=== PATIENT | female | born 1980 | race Caucasian/White ===

== ENCOUNTER 2018-03-24 08:53 | Inpatient (IN) | payer BC ==
[2018-03-24] MEDS ORDERED: Ondansetron HCl/PF 4 MG/2 ML Vial ONE (09:19)
[2018-03-24] MEDS ORDERED: Ketorolac Tromethamine 30 MG/ML VIAL ONE ×2 (09:19→12:37)
[2018-03-24 09:25] LABS: Bilirubin Negative (Negative); Blood, Urine Negative (Negative); Clarity Clear (Clear); Glucose, Urine (Dipstick) Negative (Negative); Leukocyte Negative (Negative); Nitrite Negative (Negative); Protein, Urine (Dipstick) Negative (Neg-Trace); Urobilinogen 0.2 mg/dL (0.2-1.0)
[2018-03-24 09:27] LABS: Pregnancy Test - Urine (BHCG) Negative (Negative); Pregu Control Background? CLEAR/WHITE (CLR/WHITE); Pregu Control Bar Appear? YES (CONTROL BAR)
[2018-03-24 09:32] LABS: #Basophils 0.1 thou/uL (0.0-0.2); #Eosinphils 0.2 thou/uL (0.0-0.7); #Lymphocytes 1.1 thou/uL (1.20-3.40); #Monocytes 1.1 thou/uL (0.11-0.59); #Neutrophils 12.5 thou/uL (1.40-6.50); %Basophils 0.6 % (0.0-1.0); %Lymphocytes 7.6 % (21.0-51.0); %Monocytes 7.2 % (0.0-10.0); %Neutrophils 83.6 % (42.0-75.0); Hemoglobin 14.3 g/dL (12.0-16.0); Mean Corpuscular Hemoglobin 31.5 pg (27.0-31.0); Mean Corpuscular Volume 90.1 fL (78.0-98.0); Mean Platelet Volume 8.5 fL (7.4-10.4); Platelet Count 263 thou/uL (130-400); RBC Distribution Width 11.1 % (11.5-14.5); Red Blood Cell (RBC) Count 4.54 mill/uL (4.20-5.40)
[2018-03-24 09:58] LABS: ALT (SGPT) 20 U/L (8-55); AST (SGOT) 17 U/L (5-34); Alkaline Phosphatase 60 U/L (40-150); Anion Gap 11 mmol/L (10-20); BUN (Urea Nitrogen) 12 mg/dL (7.0-18.7); Bilirubin, Total 0.6 mg/dL (0.2-1.2); Calc. Creatinine Clearance 0 mL/min (70-130); Calcium 8.8 mg/dL (7.8-10.44); Carbon Dioxide 25 mmol/L (22-29); Chloride 105 mmol/L (98-107); Estimated GFR-MDRD 88; Globulin 2.7 g/dL (2.4-3.5); Glucose 102 mg/dL (70-105); Lipase 8 U/L (8-78); Potassium 4.6 mmol/L (3.5-5.1); Protein, Total 6.7 g/dL (6.0-8.3); Sodium 136 mmol/L (136-145)
[2018-03-24] MEDS ORDERED: Morphine 4 MG/ML Carpuject ONE (11:19)
--- NOTE | 2018-03-24 11:42 | CT ---
CT ABDOMEN AND PELVIS WITHOUT CONTRAST: Date: 03/24/18 HISTORY: Right flank pain, right lower abdominal pain with nausea and low grade temperature. History of previo us appendectomy. FINDINGS: Absence of oral and IV contrast reduces the sensitivity of exam, particularly for evaluation of solid organs and bowel. No free air is seen. A small amount of free fluid is noted in the pelvis. No calcified gallstones are seen. No calculi noted in the kidneys, ureters, or the urinary bladder. There are postop changes of cholecystectomy. Multiple pelvic phleboliths are present. There is fecal material in the colon. Uterus is present. There is a 7.0 cm complex mass in the right adnexa. IMPRESSION: 1. No CT evidence of urinary tract calculi or obstruction. 2. 7.0 cm complex right adnexal mass, likely ovarian. Further evaluation with pelvic ultrasound woul d be helpful. POS: ANIL
--- NOTE | 2018-03-24 11:49 | ULT ---
PELVIC ULTRASOUND: Date: 03/24/18 HISTORY: Complex right adnexal mass. COMPARISON: None. CORRELATION: CT abdomen and pelvis dated 03/24/18. TECHNIQUE: Transabdominal and endovaginal imaging of the pelvis is performed. Right ovary is interrogated with G ray scale, color flow, Doppler imaging, and spectral waveform analysis. FINDINGS: Surgically absent uterus. Left ovary is not appreciated. No obvious masses or fluid in the left adnexa. In the right adnexa, there is a complex, mixed echotexture focus, measuring 7.4 x 4.3 x 5.5 cm. Multi ple septations and separate anechoic foci are noted suggesting a complex cystic lesion. The largest c omplex cystic focus measures 4.1 x 3.6 x 4.0 cm. There is no free fluid. OVARIAN DOPPLER: There is vascular flow along the periphery of the aforementioned complex right adnexal lesion. IMPRESSION: Complex right ovarian cyst is suspected. There is peripheral vascular flow. Correlate clinically with gynecological consultation. Follow-up imaging in 8-10 weeks is recommended. POS: ANIL
[2018-03-24] MEDS ORDERED: HYDROcodone/Acetaminophen 7.5/325 mg Tablet PO PRN (13:18)
[2018-03-24] MEDS ORDERED: Ondansetron ODT 4 MG TAB PO PRN (13:18)
[2018-03-24] MEDS ORDERED: Zolpidem Tartrate 5 MG TAB PO PRN (13:18)
[2018-03-24] MEDS ORDERED: Ondansetron HCl/PF 4 MG/2 ML Vial IVP PRN (13:18)
[2018-03-24] MEDS: HYDROcodone/Acetaminophen 7.5/325 mg Tablet PO PRN ×2 (15:33→20:06)
--- NOTE | 2018-03-24 17:54 | HP ---
DATE OF ADMISSION: 03/24/2018 REASON FOR ADMISSION: Right lower quadrant pain with complex right adnexal mass. HISTORY OF PRESENT ILLNESS: Ms. Merida is a 37-year-old 2, para 2, status post x2, who p resents with approximately 1 day of right lower quadrant pain. She had had some mild back pain on th e right for the past week or so and then had sudden onset about 12-15 hours ago. She has had some mi ld nausea and vomiting with it. The patient has never had this in the past. OB AND INSURANCE VERIFY REP HISTORY: x2, peripartum hysterectomy with second child secondary to retained placenta and possibly accreta. The patient received blood transfusions and had a hysterectomy 2-3 days post delivery. She has no history of endometriosis or cervical dysplasia. PAST MEDICAL HISTORY: Denies. PAST SURGICAL HISTORY: Appendectomy and hysterectomy. SOCIAL HISTORY: Denies tobacco, alcohol or drug use. FAMILY HISTORY: Noncontributory. REVIEW OF SYSTEMS: Noncontributory. PHYSICAL EXAMINATION: GENERAL: White female, in no acute distress. VITAL SIGNS: Temperature 98.9, pulse 63, respirations 18, blood pressure 95/53. HEENT: Within normal limits. LUNGS: Clear to auscultation bilaterally. HEART: Regular rate and rhythm. BREASTS: Without masses bilaterally. ABDOMEN: Soft and nontender except in the right lower quadrant with moderate palpation. There is no fluid wave. No CVA tenderness. PELVIC: Deferred. EXTREMITIES: Without clubbing, cyanosis or edema. LABORATORY DATA: The patient has a white count of 15,000, hematocrit of 41%, normal platelet count, normal base met and a clear UA. RADIOLOGIC IMAGING: Pelvic ultrasound reveals complex mixed echogenic texture focus read as measurin g 7.45 x 4.3 x 5.5 cm with multiple septations and separate anechoic foci noted. My review of the pi ctures reveals that they seemed to be most consistent with hemorrhagic cyst. There is no free fluid. There is no evidence of mature cystic teratoma. Good Doppler flow was noted. Left ovary was not a ppreciated on ultrasound or CT. CT scan confirmed the same findings as noted on ultrasound. IMPRESSION: Probable hemorrhagic right ovarian cyst. Other possibilities include mature cystic vanessa frantz or malignancy, although these seem low on the list with the subtle findings as well as absence o f free fluid and the patient's age. PLAN: Discussed with the patient options. The size of the mass and the patient's pain places it as a non-elective case, at this time really cannot call it emergent. We will place the patient on the s urgical schedule for tomorrow. Clear liquid diet this afternoon, n.p.o. after midnight. CA-125 orde red and pending. We will administer appropriate antibiotic and DVT prophylaxis.
[2018-03-24] MEDS: Docusate 100 MG CAP PO SCH (20:07)
[2018-03-24] MEDS: Sodium Chloride 0.9% 1,000 ML IV SCH ×2 (20:09→20:17)
[2018-03-25] MEDS ORDERED: Sodium Chloride 0.9% 10 ML ONE (00:01)
[2018-03-25] MEDS: HYDROcodone/Acetaminophen 7.5/325 mg Tablet PO PRN (00:28)
[2018-03-25] MEDS: Sodium Chloride 0.9% 1,000 ML IV SCH ×4 (06:29→22:26)
--- NOTE | 2018-03-25 07:24 | PRG ---
DATE OF SERVICE: 03/25/2018 TIME OF SERVICE: 0645 The patient is resting comfortably with right adnexal mass. Ultrasound findings are consistent with a hemorrhagic cyst. CA-125 came back and was less than 9. The patient reports continued pain and ju st received morphine for pain control. PHYSICAL EXAMINATION: VITAL SIGNS: Temperature 98.8, pulse 63, respirations 16, blood pressure 100/63. ABDOMEN: Soft, but discomfort in right lower quadrant with no fluid wave and no rebound, no CVA tend erness noted. EXTREMITIES: Without clubbing, cyanosis or edema. IMPRESSION: Right adnexal mass measuring 7-8 cm in greatest diameter. PLAN: Discussed with patient and her the option. Her pain remains the same. The patient is on the add-on schedule for a laparoscopic right salpingo-oophorectomy later today by the next shift O B Hospitalist, Dr. Nick Campbell. We will administer appropriate antibiotic and DVT prophylaxis.
[2018-03-25] MEDS ORDERED: CEFAZOLIN/Water 2 GM/20 ML SYRINGE SLOW IVP SCH (08:00)
[2018-03-25] MEDS ORDERED: CEFAZOLIN/Water 2 GM/20 ML SYRINGE ONE (09:14)
--- NOTE | 2018-03-25 09:24 | PRG ---
DATE OF SERVICE: 03/25/2018 DATE OF ADMISSION: 03/24/2018 TIME OF BEDSIDE EVALUATION: 0830 until 0855. LOCATION: Room 306. 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 She is unsure if the left ovary was excised and removed at that time. The patient comes in for increasing abdominal and back pain and was found to have a 7 cm complex hemorrhagic appearing right adnexal mass on both CT scan and ultrasound. She was initially evaluated and worked up by Dr. Yehuda Lassiter and she was placed on the OR schedule for today with a time at approximately 10:00 a.m., but we are still events traffic controller and pending. The patient is unsure if she has both ovaries or just one. I reviewed with the patient her surgical history which includes her unplanned emergent hysterectomy for bleeding after an attempt a t D&C at that time. She also had a laparoscopic appendectomy in the past with an access port/retriev al bag incision on the left lower quadrant. I discussed with the patient three options of care: 1. Expectant management. 2. Laparoscopic removal. 3. Mini Pfannenstiel incision. While expectant management is an option, I am unsure if this will re solve as it is complex and already 7 cm. The risk of spontaneous intra-abdominal rupture is there an d so I elected to inform her that removal may be best. The patient agreed. Once removal was elected we then approached the discussion of laparoscopic surgery versus laparotomy. As the patient has had a prior hysterectomy and appendectomy, the likelihood for increased intraabdominal pelvic adhesions is higher. I discussed with her that a mini laparotomy may allow more tactile inspection of the adne xa. After discussion, the patient has elected to proceed with a mini laparotomy instead of a laparos copy. Once we decided on a mini laparotomy via Pfannenstiel, I notified the OR and changed the proce dure from laparoscopic ovarian cyst removal to mini Pfannenstiel. 4. The patient was given risks including anesthesia, infection, bowel/visceral injury, recurrence. I discussed with her that if the patient only has one ovary, removal of this ovary would result in a menopausal state. We will only remove the remaining ovary if necessary. It is unclear if the patien t does have both ovaries as the ultrasound did not reveal the contralateral ovary. If the patient do es have both ovaries, we can consider unilateral oophorectomy for the affected side if necessary. If the patient does not have both ovaries, we will try to preserve some ovarian tissue to prevent menop ausal status at the risk of future cyst recurrence. At time of dictation which was 854 the patient was taken down to the main OR per wheelchair to await prep and anesthesia evaluation. ASSESSMENT: This is a patient status post hysterectomy and appendectomy with 7 cm complex right adne xal cyst. CA-125 is normal. PLAN: 1. Mini laparotomy after informed consent. Laparoscopic approach also reviewed with her and patient elects for a mini open laparotomy. 2. No acute concerns at this time.
[2018-03-25] MEDS ORDERED: Morphine 4 MG/ML VIAL ONE (09:45)
[2018-03-25] MEDS ORDERED: Bupivacaine HCl 0.5%/Epinephrine 1:200,000/PF 30 ml Vial ONE ×2 (09:51→11:54)
[2018-03-25] MEDS ORDERED: Scopolamine 1.5 mg/72 hour Patch ONE (09:58)
[2018-03-25] MEDS ORDERED: Midazolam HCl 2 mg/2 ml Vial ONE (09:58)
--- NOTE | 2018-03-25 10:07 | PDOC.EVN ---
Event Note - Event Note Event Note: PREOP HOLDING: @ 1005: I AM WITH THE PATIENT AT BEDSIDE...JACINDA 1. AWAITING TRANSFER TO OR D. I AGAIN DISCUSSED WITH HER OPTIONS FOR APPROACH, AND PATIENT ELECTS MINI LOPEZ.
[2018-03-25] MEDS ORDERED: Fentanyl 250 MCG/5 ML VIAL ONE (10:10)
[2018-03-25] MEDS ORDERED: HYDROmorphone 2 MG/ML VIAL ONE (11:26)
[2018-03-25] MEDS ORDERED: HYDROmorphone 2 MG/ML VIAL SLOW IVP PRN (11:27)
[2018-03-25] MEDS ORDERED: Promethazine HCl 25 MG/ML VIAL IM PRN ×2 (11:27→12:34)
[2018-03-25] MEDS ORDERED: Meperidine HCl/PF 25 MG/ML VIAL SLOW IVP PRN ×2 (11:27→12:34)
[2018-03-25] MEDS ORDERED: Ondansetron HCl/PF 4 MG/2 ML Vial IVP PRN ×2 (11:27→12:34)
[2018-03-25] MEDS ORDERED: Promethazine HCl 25 MG/ML VIAL SLOW IVP PRN ×2 (11:27→12:34)
[2018-03-25] MEDS ORDERED: Bupivacaine PF 0.5% 30 ML VIAL ONE (11:47)
[2018-03-25] MEDS ORDERED: Simethicone Chewable 80 MG TAB PO PRN (12:25)
[2018-03-25] MEDS ORDERED: Acetaminophen/Codeine 30-300mg Tablet PO PRN (12:25)
[2018-03-25] MEDS ORDERED: Lactated Ringer's 1,000 ML IV SCH (12:30)
[2018-03-25] MEDS ORDERED: Morphine Sulfate 2 MG/ML SYRINGE SLOW IVP PRN (12:34)
--- NOTE | 2018-03-25 12:42 | OP ---
DATE OF PROCEDURE: 03/25/2018 TIME: 12:16 PREOPERATIVE DIAGNOSES: This is a patient status post hysterectomy in the past , around 2008, which occurred who has a symptomatic right hemorrhagic appearing 7 cm mass. POSTOPERATIVE DIAGNOSES: 1. This is a patient status post hysterectomy in the past, around 2008, which occurred who has a symptomatic right hemorrhagic appearing 7 cm mass. 2. Hemorrhagic mass suspected on gross inspection of the ovary. PROCEDURE: 1. Mini Pfannenstiel exploratory laparotomy. 2. Enterolysis by Dr. Guerrero, General Surgery (intraoperative sql server consultant). 3. Right salpingo-oophorectomy. SURGEON: Nick Campbell M.D. INTRAOPERATIVE CONSULTATION: Dr. Randal Guerrero [employer] PROFESSOR: Dr. Dileep Joe with [facility]. ANESTHESIA: General. ANTIBIOTICS: Ancef 2 grams per hospital protocol. IV FLUIDS: Crystalloid (please see anesthesia record). ESTIMATED BLOOD LOSS: About 100 mL (about 20 mL of blood was noted leaking from the hemorrhagic cyst during the enterolysis). This leaking was secondary to manipulation. It was not spontaneous. URINE OUTPUT: Urine output is about 300 mL. Other agents used intraoperative includes: One application of Tonya in the denuded right adnexal base. FINDINGS: 1. Upon entry into the abdominal pelvic cavity via Pfannenstiel skin incision, we were able to palpate the right adnexal mass. This adnexal mass was deeply adhesed to the small bowel and to the sigmoid colon posteriorly. 2. About 20 mL of old blood was noted to be leak from the ovarian cyst during system manipulation. 3. Hemostasis post-procedure. 4. No evidence of intra-abdominal pelvic ascites. 5. A left ovary was not appreciated, even though it was searched for. It is important to note, however, that there were dense adhesions of the large bowel to the sidewall and this may have prevented visualization. PATHOLOGY: RSO sample. COMPLICATIONS: None. COUNTS: Correct. DISPOSITION: To recovery where anesthesia will perform an abdominal nerve block for pain reduction. TECHNIQUE: After proper informed consent was explained to the patient, she was taken to OR D and placed under general endotracheal anesthesia. The patient's abdomen was prepped and draped in the usual sterile fashion. A Pfannenstiel skin incision was made in the area of the old Pfannenstiel scar. Bovie cautery on cut mode was used to dissect the subcutaneous tissue down to the level of the fascia. Fascia was identified, cleaned off of any overlying fat and entered in a transverse fashion. Rectus muscles were identified and in the midline and identification of the peritoneum followed. The peritoneum was entered with Bradford scissors without complication and without injury to the underlying structures. At this point, we placed a medium Lucio retractor into the abdomen for wound retraction. We palpated the right adnexal mass and found it to be deeply adhesed to the small bowel and to the sigmoid posteriorly. No evidence of a left ovary was noted. At this point, we called Dr. Guerrero who is a general surgeon compliance consultant and Dr. Guerrero arrived within 10 minutes of being called. He performed enterolysis without injury to the bowel. No excessive bleeding or other complication was noted. Once the adnexal mass was freed, 2 clamps were placed across the IP ligament and this was transected and free tie ligated for hemostasis. For additional hemostasis Tonya application was done at the adnexal base. There were no complications noted. It is important to note that Dr. Guerrero did use a Bookwalter retractor for better visualization. For full details on his enterolysis please see his dictation. After the mass was removed, and the search for the left ovary was unsuccessful, all instruments were removed. All counts were correct and the fascia was closed with 0 PDS x2 in a running nonlocking fashion. Copious irrigation was then done of the subcutaneous tissue and the subcutaneous tissue was closed with 3-0 plain gut. Skin was closed with 3-0 Monocryl in a subcuticular stitch and Dermabond placed as a liquid adhesion barrier. It is important to note that prior to abdominal closure the abdomen was again inspected and no bleeding was noted. All aspects of the dissection were noted to be dry and without evidence of bleed. The patient will be transferred to recovery for routine recovery and for a nerve block to reduce opioid use. At the end of the procedure I discussed the findings with the patient's family and I recommended that they searched for the operative report from the hysterectomy to confirm that the left ovary was not removed. It is important to note that the left ovary was not identified on ultrasound and not visualized today intraoperatively, but this may be due to adhesion retraction of the ovary beyond the field of view. CHELSEA
[2018-03-25] MEDS ORDERED: Fentanyl 100 MCG/2 ML VIAL ONE ×2 (12:59→13:34)
[2018-03-25] MEDS: Docusate 100 MG CAP PO SCH ×2 (13:11→22:20)
[2018-03-25] MEDS ORDERED: Ondansetron HCl/PF 4 MG/2 ML Vial ONE (13:51)
[2018-03-25] MEDS ORDERED: PROPOFOL 200 MG/20 ML VIAL ONE (13:51)
[2018-03-25] MEDS ORDERED: Lidocaine 1% PF 5 ML VIAL ONE (13:51)
[2018-03-25] MEDS ORDERED: Metoclopramide HCl 10 MG/2 ML VIAL ONE (13:51)
[2018-03-25] MEDS ORDERED: Succinylcholine Chloride 20 MG/ML 10 ml SYRINGE FS ONE (13:51)
[2018-03-25] MEDS ORDERED: Dexamethasone 20 MG/5 ML VIAL ONE (13:51)
[2018-03-25] MEDS ORDERED: Ketorolac Tromethamine 30 MG/ML VIAL ONE (13:51)
[2018-03-25] MEDS ORDERED: Dexamethasone 4 mg/ml Vial ONE (14:09)
--- NOTE | 2018-03-25 16:11 | OP ---
DATE OF PROCEDURE: 03/25/2018 PREOPERATIVE DIAGNOSIS: Large cystic ovarian mass. POSTOPERATIVE DIAGNOSES: 1. Hemorrhagic cystic ovarian mass. 2. Intraabdominal adhesions involving the hemorrhagic ovarian mass as well as the sigmoid colon posteriorly and loops of ileum anteriorly . PROCEDURES PERFORMED: Adhesiolysis. INDICATIONS FOR PROCEDURE: This is a 37-year-old woman who was already under general anesthesia in the care of Dr. Campbell. I was called for an intraoperative consultation. Abdomen was already opened through a low Pfannenstiel incision. There appears to be adhesions involving bowel. I was asked to assist with adhesiolysis. DESCRIPTION OF PROCEDURE: Bookwalter retractor was put in place to gain exposure of the peritoneal cavity. I was then able to run the small bowel from the terminal ileum upwards to approximately 2 feet from the terminal ileum where there were adhesions involving this segment of bowel and underlying cystic ovarian mass. Using Metzenbaum scissors, the small bowel was meticulously dissected off the cystic mass without any enterotomies or serosal tear. I attempted to mobilize the ovarian mass and noted that it was adhered posteriorly to the sigmoid colon. The small bowel was packed off the field. The sigmoid colon was grasped and retracted laterally away from the cystic mass. Using Metzenbaum scissors alternated with cautery, the cystic mass is mobilized medially away from the sigmoid colon. Care was taken to avoid injury to the bowel itself. During this process, the cystic mass was entered and decompressed free of hemorrhagic fluid. Once the adhesiolysis was completed, the patient was turned over to the care of Dr. Campbell to complete the cystectomy. The site of adhesions on the sigmoid colon and ileal segment were again reexamined to exclude any injuries. I turned the patient over at this time to Dr. Campbell to complete the rest of his operation. [facility] HEALTH SYSTEMLayne
--- NOTE | 2018-03-25 17:01 | PRG ---
DATE OF SERVICE: 03/25/2018 TIME OF DICTATION: 1632 TIME OF EVALUATION: 1550 until 1600. LOCATION: 3 [facility] in [facility]. POSTOPERATIVE CHECK In brief, the patient was seen at bedside and she is alert and oriented. I explained to her the find ings of surgery as well as the necessity for the right salpingo-oophorectomy. I also discussed with her that we would evaluate her serum estradiol level in about 2 weeks to see if it is still within no rmal limits since the left ovary was not well visualized. The patient received transabdominal/cutane ous nerve block per Anesthesia in PACU. The patient is doing well. Vital signs are stable and she i s afebrile. I examined the patient's abdomen and there is no evidence of distention, although there is some hypoactive bowel activity. She for clear liquids. She has SCDs in place. ASSESSMENT: The patient patient postoperative 4 hours from exploratory laparotomy and RSO. PLAN: 1. Routine postop care. 2. SCDs while in bed. 3. AM hematocrit pending. 4. Advance diet as tolerated. 5. Limit narcotic use. 6. No acute evidence of complications at this time.
[2018-03-25] MEDS: Ketorolac Tromethamine 30 MG/ML VIAL IVP SCH (18:39)
--- NOTE | 2018-03-25 19:38 | PDOC.EVN ---
Event Note - Event Note Event Note: @1935: MEKHI: Patient seen, ambulating in hallway. Doing well. Riddhi smith earlier. pain well controlled. Follow and advance postop care as able.
[2018-03-25] MEDS: Acetaminophen/Codeine 30-300mg Tablet PO PRN (22:19)
[2018-03-26] MEDS: Ketorolac Tromethamine 30 MG/ML VIAL IVP SCH ×2 (00:36→06:38)
[2018-03-26] MEDS: Acetaminophen/Codeine 30-300mg Tablet PO PRN ×2 (02:26→11:36)
[2018-03-26 05:34] LABS: Hemoglobin 11.7 g/dL (12.0-16.0); Mean Corpuscular HGB CONC 32.3 g/dL (32.0-36.0); Mean Corpuscular Hemoglobin 30.6 pg (27.0-31.0); Mean Corpuscular Volume 94.8 fL (78.0-98.0); Mean Platelet Volume 8.1 fL (7.4-10.4); Platelet Count 200 thou/uL (130-400); RBC Distribution Width 11.7 % (11.5-14.5); Red Blood Cell (RBC) Count 3.82 mill/uL (4.20-5.40); White Blood Cell (WBC) Count 13.9 thou/uL (4.8-10.8)
[2018-03-26] MEDS ORDERED: Ibuprofen 800 MG TAB PO SCH ×2 (06:15→14:00)
--- NOTE | 2018-03-26 06:16 | PDOC.EVN ---
Event Note - Event Note Event Note: @0615: Postop day 1 S. Primo po, passing gas already and ambulating; voided already O. Vitals...Tmax 99.4 last PM at 2029..pulse and BP stable Hct 36 Abd non-tender, non-distended BS present Incision C/D/I A/P: POD 1 doing well....primo po 1. advance diet this am as bowel function returned 2. prob [facility] home today at 1600 as doing well 3. home with tylenol #3 4. [facility]WC in 2 weeks
[2018-03-26] MEDS: Sodium Chloride 0.9% 1,000 ML IV SCH ×2 (06:21→06:37)
--- NOTE | 2018-03-26 06:34 | DIS ---
DATE OF ADMISSION: 03/24/2018 DATE OF DISCHARGE: 03/26/2018 PRINCIPAL DIAGNOSES: Right adnexal complex mass. PRINCIPAL PROCEDURE: 1. Mini laparotomy. 2. Right salpingo-oophorectomy. INTRAOPERATIVE CONSULTATION: Dr. Randal Guerrero (General Surgery) HOSPITAL COURSE: In brief, this is a patient who was admitted by Dr. Yehuda Lassiter on 03/24/2018 as a 37-year-old patient with a history of a hysterectomy in the past as well as an appendectomy at a subsequent surgery, who presents now with abdominal pain that has worsened over 1 day. Ultrasound revealed a complex right adnexal mass and the ultrasound did not identify a left ovary. Per Dr. Lassiter's informed consent she was offered surgical intervention and she was put on the surgery books/docket for 03/25/2018. When I assumed call on 03/25/2018 I interviewed the patient underwent informed consent of procedure with her. The patient elected for a mini laparotomy based on her prior hysterectomy and appendectomy history and in anticipation of intraabdominal adhesions. When we performed the surgery, we did find intraabdominal adhesions with the adnexal mass adherent around the small and large intestine. Dr. John Guerrero assisted with enterolysis to free the adnexal cyst. The RSO sample was sent to pathology and results are pending. The patient did well in her postop course with ambulation within the first 4 hours postop. She was also tolerating a soft mechanical/full liquid diet and on postoperative day #1, which was 03/26/2018, she began a soft regular diet. As she was ambulatory and tolerating p.o. with spontaneous passage of flatus, the plan was made to discharge the patient at 1600 on 03/26/2018. She was given instructions to call for increased abdominal distention, fever, or persistent nausea or abdominal pain. She was told to follow up in 2 weeks at [facility] for a postop check. The incision was clean, dry, and intact and sutured closed. Dermabond liquid adhesive was present. At the 2-week followup I also suggested that she bring her operative report from her hysterectomy to confirm that the left ovary was not removed. As an additional option she can have serum estradiol levels checked to confirm that she still has functioning estradiol capability. The patient was seen and evaluated by me at 0610 to 0620 at bedside in room 306. MTDD
[2018-03-26] MEDS: Docusate 100 MG CAP PO SCH (10:06)
[2018-03-26 11:40] VITALS: BP 110/64; TEMP 98.2
[2018-03-26] MEDS ORDERED: HYDROcodone/Acetaminophen 5/325 mg Tablet PO PRN (14:29)
[2018-03-26] MEDS ORDERED: HYDROcodone/Acetaminophen 5/325 mg Tablet PO SCH (14:30)
[2018-03-30] MEDS ORDERED: Ibuprofen 800 MG TAB PO SCH (22:00)
== END 2018-03-26 16:05 | disposition home or self-care (01) | DRG 743 ==
LOC: SCSER 08:53 → OBSVTOIN 11:12 → 3SE 11:12
PROVIDERS: ADMIT Obstetrics & Gynecology; ATTEND Obstetrics & Gynecology
PROC: 0UT50ZZ Resection of Right Fallopian Tube, Open Approach (ICD-10-PCS; principal; 2018-03-25)
PROC: 0UN00ZZ Release Right Ovary, Open Approach (ICD-10-PCS; 2018-03-25)
DX: N83.201 Unspecified ovarian cyst, right side (principal); K66.0 Peritoneal adhesions (postprocedural) (postinfection); R19.09 Other intra-abdominal and pelvic swelling, mass and lump
CPT/HCPCS: 36415; 74176; 76856; 80053; 81003; 81025; 83690; 85025; 85027; 86304; 88304; 88305; 94760; 96361; 96374; 96375; 96376; A4216; J0131; J0670; J1100; J1170; J1885; J2001; J2250; J2270; J2405; J2704; J2765; J3010; S0020

== ENCOUNTER 2018-03-28 15:57 | Emergency (ER) | payer BC ==
[~2018-03-28 15:57] MED LIST: Iopamidol 370 76% 100 ML VIAL ONE
[2018-03-28 17:11] LABS: Bilirubin Negative (Negative); Blood, Urine Negative (Negative); Clarity Clear (Clear); Glucose, Urine (Dipstick) Negative (Negative); Leukocyte Negative (Negative); Nitrite Negative (Negative); Protein, Urine (Dipstick) Negative (Neg-Trace)
[2018-03-28] MEDS ORDERED: Morphine 4 MG/ML VIAL ONE ×2 (17:11→20:29)
[2018-03-28 17:13] LABS: #Basophils 0.1 thou/uL (0.0-0.2); #Eosinphils 0.2 thou/uL (0.0-0.7); #Lymphocytes 2.2 thou/uL (1.20-3.40); #Monocytes 0.5 thou/uL (0.11-0.59); #Neutrophils 4.1 thou/uL (1.40-6.50); %Basophils 1.1 % (0.0-1.0); %Eosinophils 3.5 % (0.0-10.0); %Lymphocytes 30.9 % (21.0-51.0); %Monocytes 6.6 % (0.0-10.0); Hemoglobin 12.3 g/dL (12.0-16.0); Mean Corpuscular HGB CONC 33.6 g/dL (32.0-36.0); Mean Corpuscular Hemoglobin 30.6 pg (27.0-31.0); Mean Corpuscular Volume 90.9 fL (78.0-98.0); Mean Platelet Volume 8.3 fL (7.4-10.4); Platelet Count 205 thou/uL (130-400); RBC Distribution Width 11.3 % (11.5-14.5); Red Blood Cell (RBC) Count 4.03 mill/uL (4.20-5.40); White Blood Cell (WBC) Count 7.1 thou/uL (4.8-10.8)
[2018-03-28 17:27] LABS: ALT (SGPT) 29 U/L (8-55); AST (SGOT) 34 U/L (5-34); Albumin 4.1 g/dL (3.5-5.0); Alkaline Phosphatase 69 U/L (40-150); Anion Gap 13 mmol/L (10-20); BUN (Urea Nitrogen) 7 mg/dL (7.0-18.7); Bilirubin, Total 0.5 mg/dL (0.2-1.2); Calc. Creatinine Clearance 0 mL/min (70-130); Calcium 9.8 mg/dL (7.8-10.44); Carbon Dioxide 28 mmol/L (22-29); Chloride 104 mmol/L (98-107); Estimated GFR-MDRD 86; Glucose 94 mg/dL (70-105); Lipase 11 U/L (8-78); Potassium 3.8 mmol/L (3.5-5.1); Protein, Total 7.1 g/dL (6.0-8.3); Sodium 141 mmol/L (136-145)
--- NOTE | 2018-03-28 19:44 | CT ---
CT ABDOMEN AND PELVIS 03/28/18 COMPARISON: 03/24/18 HISTORY: Lower abdominal pain. TECHNIQUE: Serial axial CT imaging obtained at 5 mm intervals from lung bases through pubic symphysis with IV an d oral contrast. Coronal reformatted imaging obtained. FINDINGS: The imaged lung bases appears unremarkable. A focal hyperenhancing nonspecific lesion within the liver centrally on image 11 measuring 2.4 cm for which nonemergent followup imaging is suggested. There is mild distention of the gallbladder, significance uncertain. If there is right upper quadrant pain, right upper quadrant ultrasound may be beneficial. Spleen and pancreas appear grossly unremarkable as do adrenal glands and bilateral kidneys. There are numerous scattered foci of gas within the rectus abdominis musculature. There is also extra peritoneal gas in the space of Retzius, consistent with the provided history of recent laparoscopic r ight sided oophorectomy. Nonspecific small volume free fluid is seen in the pelvis. The adnexal structures/ovaries cannot be w ell assessed on this exam. No evidence for bowel obstruction. Right lower quadrant clips suggest prior appendectomy. No drainabl e fluid collection is seen in the abdomen or pelvis. The vascular structures demonstrate a circumaortic left renal vein. No lymphadenopathy is noted. Osse ous structures demonstrate no acute findings. There is a small fat containing umbilical hernia. IMPRESSION: 1. Postoperative gas within the rectus abdominis musculature bilaterally as well as within the e xtraperitoneal space of Retzius. 2. Hyperenhancing 2.4 cm liver lesion for which followup nonemergent MRI of the abdomen advised. 3. Mild gallbladder distention. Please see above discussion. 4. No evidence for bowel obstruction or intra-abdominal/intrapelvic abscess. POS: ANIL
[2018-03-28] MEDS ORDERED: Ketorolac Tromethamine 30 MG/ML VIAL ONE (20:29)
== END 2018-03-28 20:53 | disposition home or self-care (01) ==
LOC: SCSER 15:57
DX: R10.31 Right lower quadrant pain (principal); F41.9 Anxiety disorder, unspecified; F32.9 Major depressive disorder, single episode, unspecified
CPT/HCPCS: 74177; 80053; 81003; 83690; 85025; 96361; 96374; 96375; 96376; J1885; J2270

== ENCOUNTER 2018-04-22 13:15 | Outpatient (CLI) | payer BC ==
--- NOTE | 2018-04-22 17:30 | MRI ---
MRI ABDOMEN WITH AND WITHOUT IV CONTRAST: 04/22/18 HISTORY: Other specified disease of the liver, abnormal CT scan of 03/28/18. FINDINGS: There is a 2.4 cm hyperenhancing focus in the central portion of the liver without definite abnormali ties on T2 sequences. This was all noted on the CT scan of 03/28/18. No additional lesions are seen in the liver. The spleen, pancreas, and adrenal glands are normal. There are a few tiny cysts in the ki dneys. No free fluid or lymphadenopathy is seen. The gallbladder is normal. Bone marrow signal is nor mal. IMPRESSION: Hyperenhancing 2.4 cm liver lesion. In this age group this is most likely due to FNH or hepatic adeno ma (Is the patient is on oral contraceptive pills?), less likely primary or secondary malignancy. A 3 month follow[address] triple phase [address] scan is recommended. POS: [facility]
== END 2018-04-22 13:16 | disposition home or self-care (01) ==
LOC: SCSMRI 13:15
PROVIDERS: ATTEND Obstetrics & Gynecology
DX: K76.89 Other specified diseases of liver (principal); K76.9 Liver disease, unspecified
CPT/HCPCS: 74183